=== PATIENT | female | born 1965 | race Caucasian/White ===

== ENCOUNTER 2020-02-09 18:56 | Inpatient (IN) | payer OTHER, SELFPAY ==
[~2020-02-09] VITALS: Ht 167.6 cm; Wt 136.1 kg
[2020-02-09] MEDS: MAGNESIUM SULFATE 1GM/100ML 100 ML IV SCH ×2 (02:00→23:26)
[2020-02-09 19:55] LABS: Basophils # (auto) 0.1 10 ^3/uL (0-0.2); Basophils % (auto) 0.7 % (0.0-2.0); Eosinophils # (auto) 0.2 10 ^3/uL (0-0.8); Eosinophils % (auto) 1.5 % (0.0-7.0); Hematocrit 37.9 % (36.0-46.0); Hemoglobin 12.7 g/dL (12.2-16.2); Lymphocytes # (auto) 1.2 10 ^3/uL (0.4-5.4); Lymphocytes % (auto) 11.2 % (10.0-50.0); Mean Corpuscular Hgb Conc. 33.4 g/dL (32.0-36.0); Mean Corpuscular Volume 95.8 fL (80.0-100.0); Monocytes # (auto) 0.7 10 ^3/uL (0-1.3); Monocytes % (auto) 6.1 % (0.0-12.0); Neutrophils # (auto) 8.8 10 ^3/uL (1.6-8.6); Neutrophils % (auto) 80.5 % (37.0-80.0); Platelet Count (auto) 231 10^3/uL (140-450); Red Blood Cells 3.96 10^6/uL (4.0-5.20); Red Cell Distribution Width 14.6 % (11.8-14.3)
[2020-02-09 20:28] LABS: Albumin 2.6 g/dL (3.4-5.0); BUN/Creatinine Ratio 12.2; Calcium 8.8 mg/dL (8.5-10.1); Potassium 4.3 mmol/L (3.5-5.1)
[2020-02-09 20:31] LABS: Bilirubin, Total 0.6 mg/dL (0.2-1.0); Total Protein 7.5 g/dL (6.4-8.2)
[2020-02-09 20:44] LABS: Magnesium 1.6 mg/dL (1.6-2.6)
[2020-02-09 20:52] LABS: CRP High Sensitivity 10.6 mg/dL (< 0.3)
[2020-02-09] MEDS ORDERED: CHOLECALCIFEROL (VITD3) 1,000IU=25mCg TAB PO ONE (21:00)
[2020-02-09] MEDS ORDERED: ASCORBIC ACID 500 MG TAB PO ONE (21:00)
[2020-02-09] MEDS ORDERED: AZITHROMYCIN 500MG/ 250ML 250 ML IV SCH (21:00)
[2020-02-09] MEDS ORDERED: ZINC SULFATE 220mg CAP or TAB PO ONE (21:00)
[2020-02-09] MEDS: ALBUTEROL SULF HFA 90MCG INH 200DOSE IN SCH (21:38)
[2020-02-09] MEDS ORDERED: MORPHINE SULFATE 4 MG/ML SYR/VIAL IV PRN (22:45)
[2020-02-09] MEDS ORDERED: ONDANSETRON HCL 4 MG/2 ML VIAL IV PRN (22:45)
[2020-02-09] MEDS ORDERED: DOCUSATE SOD 100 MG CAP PO PRN (22:45)
[2020-02-10] MEDS ORDERED: NITROGLYCERIN 0.4 MG SL TAB SL PRN
[2020-02-10 01:20] VITALS: BP 96/44
[2020-02-10 02:35] VITALS: BP 92/55
[2020-02-10] MEDS ORDERED: ROSU5TAB5 PO (03:14)
[2020-02-10] MEDS ORDERED: GABA100C9 PO (03:14)
[2020-02-10] MEDS ORDERED: CLOP75TA28 PO (03:14)
[2020-02-10] MEDS ORDERED: NIF10C PO (03:14)
[2020-02-10] MEDS ORDERED: POM (03:14)
[2020-02-10 04:00] VITALS: BP 95/57
[2020-02-10] MEDS: ALBUTEROL SULF HFA 90MCG INH 200DOSE IN SCH ×2 (06:37→14:20)
[2020-02-10 08:00] VITALS: BP 138/85
[2020-02-10 08:06] LABS: Basophils # (auto) 0.1 10 ^3/uL (0-0.2); Basophils % (auto) 0.6 % (0.0-2.0); Eosinophils # (auto) 0.2 10 ^3/uL (0-0.8); Eosinophils % (auto) 2.5 % (0.0-7.0); Hematocrit 35.9 % (36.0-46.0); Lymphocytes # (auto) 1.2 10 ^3/uL (0.4-5.4); Mean Corpuscular Hemoglobin 32.1 pg (28.0-32.0); Mean Corpuscular Hgb Conc. 33.5 g/dL (32.0-36.0); Monocytes # (auto) 0.5 10 ^3/uL (0-1.3); Monocytes % (auto) 6.1 % (0.0-12.0); Neutrophils # (auto) 6.9 10 ^3/uL (1.6-8.6); Neutrophils % (auto) 77.8 % (37.0-80.0); Nucleated Red Blood Cells % 0.1 %; Platelet Count (auto) 218 10^3/uL (140-450); Red Blood Cells 3.74 10^6/uL (4.0-5.20); White Blood Cell 8.9 10^3/uL (4.4-10.8)
[2020-02-10 08:29] LABS: BUN/Creatinine Ratio 16.4; Calcium 8.5 mg/dL (8.5-10.1); Potassium 3.5 mmol/L (3.5-5.1)
[2020-02-10] MEDS ORDERED: SODIUM CHLORIDE 0.9% 1,000 ML IV SCH (08:45)
[2020-02-10] MEDS ORDERED: MORPHINE SULF INJ 2 MG/ML SYRINGE 1ML IV PRN ×2 (09:45)
[2020-02-10] MEDS ORDERED: ZINC SULFATE 220mg CAP or TAB PO SCH (10:00)
[2020-02-10] MEDS ORDERED: AZITHROMYCIN DIHYD 500 MG VIAL IV SCH (10:00)
[2020-02-10] MEDS ORDERED: ASCORBIC ACID 500 MG TAB PO SCH (10:00)
[2020-02-10] MEDS ORDERED: ENOXAPARIN SOD 40 MG/0.4 ML SYRINGE SC SCH (10:00)
[2020-02-10] MEDS ORDERED: CHOLECALCIFEROL (VITD3) 1,000IU=25mCg TAB PO SCH (10:00)
[2020-02-10 10:03] LABS: Urine Bacteria FEW /hpf (None Seen); Urine Blood Negative /uL (Negative); Urine Specific Gravity 1.009 (1.001-1.035); Urine WBC 1 /hpf (0 - 5)
[2020-02-10] MEDS ORDERED: AZITHROMYCIN 250 MG TAB PO ONE ×2 (11:45→13:30)
[2020-02-10 12:00] VITALS: BP 124/80
[2020-02-10 15:12] VITALS: BP 124/80
== END 2020-02-10 16:15 | disposition home health service (06) | DRG 190 ==
LOC: ER 18:57 → TELE-EAST 18:58
PROVIDERS: ADMIT Hospitalist; ATTEND Hospitalist
DX: J44.1 Chronic obstructive pulmonary disease with (acute) exacerbation (principal); J18.9 Pneumonia, unspecified organism; Z68.42 Body mass index [BMI] 45.0-49.9, adult; E86.0 Dehydration; F17.210 Nicotine dependence, cigarettes, uncomplicated; I10 Essential (primary) hypertension; R09.02 Hypoxemia; E66.01 Morbid (severe) obesity due to excess calories; Z89.512 Acquired absence of left leg below knee; Z79.899 Other long term (current) drug therapy; Z03.818 Encounter for observation for suspected exposure to other biological agents ruled out
CPT/HCPCS: 36415; 36600; 71045; 73000; 80048; 80053; 81001; 82728; 82805; 83605; 83615; 83735; 83880; 84443; 85025; 85379; 86141; 87040; 87070; 87804; 87880; 93005; 93970; 94640; 96365; 96367; G0378